=== PATIENT | female | born 1990 | race Caucasian/White ===

== ENCOUNTER 2018-07-10 14:47 | Emergency (ER) | payer OTHER ==
[~2018-07-10] VITALS: Ht 177.8 cm; Wt 117.9 kg
[2018-07-10] MEDS ORDERED: SODIUM CHLORIDE FLUSH 10ML SYR IVF ONE (15:30)
[2018-07-10] MEDS ORDERED: ONDANSETRON 2MG/ML, 2ML IVPush ONE (15:30)
[2018-07-10 15:45] LABS: BASOPHILS # (AUTO) 0.03 x10^3/uL (0-0.1); BASOPHILS % (AUTO) 0 % (0-1); EOSINOPHILS # (AUTO) 0.09 x10^3/uL (0-0.4); EOSINOPHILS % (AUTO) 1 % (1-7); LYMPHOCYTES # (AUTO) 1.31 x10^3/uL (1-3.4); LYMPHOCYTES % (AUTO) 13 % (22-44); MD NO; MEAN CORPUSCULAR HEMOGLOBIN 30.6 pg (27.0-34.8); MEAN CORPUSCULAR HGB CONC 34.6 g/dL (32.4-35.8); MEAN CORPUSCULAR VOLUME 88.6 fL (80-100); MEAN PLATELET VOLUME 7.9 fL (7.4-10.4); MONOCYTES # (AUTO) 0.98 x10^3/uL (0.2-0.8); MONOCYTES % (AUTO) 10 % (2-9); NEUTROPHILS # (AUTO) 7.33 x10^3/uL (1.8-6.8); NEUTROPHILS % (AUTO) 75 % (42-75); PLATELET COUNT 321 x10^3/uL (130-400); RED CELL DISTRIBUTION WIDTH 13.1 % (9.6-15.2)
[2018-07-10] MEDS ORDERED: ONDANSETRON 2MG/ML, 2ML ONE (15:50)
[2018-07-10 15:57] LABS: ALANINE AMINOTRANSFERASE 47 U/L (12-78); ALBUMIN 2.9 g/dL (3.4-5.0); ANION GAP 7 mmol/L (5-15); CALCIUM 8.6 mg/dL (8.5-10.1); CHLORIDE 107 mmol/L (98-107); CREATININE 0.64 mg/dL (0.55-1.02)
[2018-07-10 15:59] LABS: ALKALINE PHOSPHATASE 111 U/L (45-117); BILIRUBIN,TOTAL 0.2 mg/dL (0.2-1.0)
[2018-07-10 16:10] LABS: MICROSCOPIC INDICATED
[2018-07-10 16:35] LABS: CULTURE INDICATED? NO
[2018-07-10 17:48] VITALS: BP 111/55
== END 2018-07-10 18:46 | disposition home or self-care (01) ==
LOC: ED 17:14
DX: O9A.212 Injury, poisoning and certain other consequences of external causes complicating pregnancy, second trimester (principal); S39.012A Strain of muscle, fascia and tendon of lower back, initial encounter; O98.512 Other viral diseases complicating pregnancy, second trimester; B34.9 Viral infection, unspecified; Z3A.19 19 weeks gestation of pregnancy; X58.XXXA Exposure to other specified factors, initial encounter; Y93.89 Activity, other specified; Y92.89 Other specified places as the place of occurrence of the external cause; Y99.8 Other external cause status
CPT/HCPCS: 36415; 80053; 81001; 83605; 84145; 85025; 96374; 99283; J2405

== ENCOUNTER 2018-11-27 10:35 | Inpatient (IN) | payer OTHER ==
[~2018-11-27] VITALS: Ht 172.7 cm; Wt 123.1 kg
[2018-11-27] MEDS ORDERED: OXYTOCIN 30U/ 0.9% NaCL 500ML 500 ML IV PRN (10:50)
[2018-11-27] MEDS ORDERED: OXYTOCIN 30U/ 0.9% NaCL 500ML 500 ML IV ONE (10:50)
[2018-11-27] MEDS ORDERED: D5%-LACTATED RINGERS 1,000 ML IV SCH (10:50)
[2018-11-27 11:00] VITALS: BP 121/62
[2018-11-27] MEDS ORDERED: FENTANYL PF 100 MCG/2ML IV PRN (11:00)
[2018-11-27] MEDS ORDERED: TERBUTALINE 1 MG/ML, 1ML IVPush PRN (11:00)
[2018-11-27] MEDS ORDERED: FENTANYL PF 100 MCG/2ML IVPush PRN (11:00)
[2018-11-27] MEDS ORDERED: NEWBORN KIT ONE ×2 (11:24→11:27)
[2018-11-27 11:25] LABS: BASOPHILS # (AUTO) 0.03 x10^3/uL (0-0.1); BASOPHILS % (AUTO) 0 % (0-1); EOSINOPHILS # (AUTO) 0.16 x10^3/uL (0-0.4); EOSINOPHILS % (AUTO) 2 % (1-7); LYMPHOCYTES # (AUTO) 1.96 x10^3/uL (1-3.4); LYMPHOCYTES % (AUTO) 18 % (22-44); MD NO; MEAN CORPUSCULAR HEMOGLOBIN 29.9 pg (27.0-34.8); MEAN CORPUSCULAR HGB CONC 33.7 g/dL (32.4-35.8); MEAN CORPUSCULAR VOLUME 88.9 fL (80-100); MEAN PLATELET VOLUME 8.1 fL (7.4-10.4); MONOCYTES # (AUTO) 0.89 x10^3/uL (0.2-0.8); MONOCYTES % (AUTO) 8 % (2-9); NEUTROPHILS # (AUTO) 7.87 x10^3/uL (1.8-6.8); NEUTROPHILS % (AUTO) 72 % (42-75); PLATELET COUNT 378 x10^3/uL (130-400); RED BLOOD COUNT 4.21 x10^6/uL (3.82-5.3); RED CELL DISTRIBUTION WIDTH 13.6 % (9.6-15.2)
[2018-11-27] MEDS ORDERED: OXYTOCIN 30U/ 0.9% NaCL 500ML 500 ML ONE (11:27)
[2018-11-27] MEDS ORDERED: MISOPROSTOL 200 MCG TABLET ONE (11:27)
[2018-11-27] MEDS ORDERED: LIDOCAINE 1%, 20ML ONE (11:28)
[2018-11-27] MEDS ORDERED: PLEASE ENTER HEIGHT AND WEIGHT MC SCH (11:30)
[2018-11-27] MEDS: LACTATED RINGERS 1,000 ML IV SCH ×3 (11:35→17:52)
[2018-11-27 11:36] LABS: MICROSCOPIC INDICATED
[2018-11-27] MEDS ORDERED: PREN1TAB60 PO (11:59)
[2018-11-27] MEDS ORDERED: ACET325C5 PO (12:01)
[2018-11-27 12:19] LABS: AMPHETAMINE SCREEN, URINE Negative (Negative); BARBITURATE SCREEN, URINE Negative (Negative); BENZODIAZEPINE SCREEN, URINE Negative (Negative); CANNABINOID SCREEN, URINE Negative (Negative); COCAINE SCREEN, URINE Negative (Negative); METHADONE SCREEN, URINE Negative (Negative); OPIATE SCREEN, URINE Negative (Negative)
[2018-11-27] MEDS ORDERED: FENTANYL/BUPIV./NS/PF 250 ML EPIDCONT SCH ×2 (16:32→17:56)
[2018-11-27] MEDS ORDERED: FENTANYL PF 500 MCG, BUPIVACAINE/PF 0.5%, 30ML 62.5 ML in SODIUM CHLORIDE 0.9% 177.5 ML EPIDCONT SCH (17:00)
[2018-11-27] MEDS ORDERED: BUPIVACAINE 0.25% ONE (17:31)
[2018-11-27] MEDS ORDERED: LACTATED RINGERS 1,000 ML IV SCH (17:56)
[2018-11-27] MEDS ORDERED: EPHEDRINE 50 MG/ML, 1ML IVPush PRN (18:00)
[2018-11-27] MEDS ORDERED: LACTATED RINGERS 1,000 ML IVBOLUS PRN (18:00)
[2018-11-27] MEDS ORDERED: ONDANSETRON ODT 4 MG ONE (18:46)
[2018-11-27] MEDS: ONDANSETRON 2MG/ML, 2ML IVPush PRN (18:50)
[2018-11-27] MEDS ORDERED: CALCIUM CARBONATE 500 MG TAB.CHEW ONE (21:13)
[2018-11-27] MEDS ORDERED: ONDANSETRON 2MG/ML, 2ML IVPush PRN (21:30)
[2018-11-27] MEDS ORDERED: CALCIUM CARBONATE 500 MG TAB.CHEW PO PRN ×2 (21:30)
[2018-11-27] MEDS ORDERED: METOCLOPRAMIDE 5 MG/ML, 2ML IVPush PRN (21:30)
[2018-11-27] MEDS ORDERED: SODIUM CITRATE/CITRIC ACID 15 ML UDC PO PRN (21:30)
[2018-11-27] MEDS ORDERED: ALUMINUM/MAG/SIMETHICONE 30 ML UDC PO PRN (21:30)
[2018-11-27] MEDS ORDERED: ACETAMINOPHEN 325 MG TABLET ONE (21:58)
[2018-11-27] MEDS ORDERED: ACETAMINOPHEN 325 MG TABLET PO PRN (22:00)
[2018-11-28] MEDS ORDERED: BUPIVACAINE 0.25% ONE (02:04)
[2018-11-28] MEDS ORDERED: ONDANSETRON 2MG/ML, 2ML ONE (04:39)
[2018-11-28] MEDS ORDERED: ONDANSETRON ODT 4 MG ONE (04:39)
[2018-11-28] MEDS: ONDANSETRON 2MG/ML, 2ML IVPush PRN (04:41)
[2018-11-28] MEDS ORDERED: OXYcodone IR 5MG TABLET PO PRN (05:30)
[2018-11-28] MEDS ORDERED: MISOPROSTOL 200 MCG TABLET PR PRN (05:30)
[2018-11-28] MEDS ORDERED: ACETAMINOPHEN 325 MG TABLET PO PRN (05:30)
[2018-11-28] MEDS ORDERED: ONDANSETRON 2MG/ML, 2ML IV PRN (05:30)
[2018-11-28] MEDS ORDERED: OXYTOCIN 30U/ 0.9% NaCL 500ML 500 ML ONE (06:05)
[2018-11-28] MEDS: OXYTOCIN 30U/ 0.9% NaCL 500ML 500 ML IV SCH ×2 (06:07→15:05)
[2018-11-28] MEDS ORDERED: DIPHENHYDRAMINE 25 MG CAPSULE ONE (06:16)
[2018-11-28] MEDS ORDERED: DIPHENHYDRAMINE 25 MG CAPSULE PO ONE (06:30)
[2018-11-28 07:25] VITALS: BP 125/84
[2018-11-28] MEDS: PRENATAL VIT/IRON/FA 1 EACH TABLET PO SCH (09:00)
[2018-11-28 12:00] VITALS: BP 117/71
[2018-11-28 12:59] LABS: BASOPHILS # (AUTO) 0.06 x10^3/uL (0-0.1); BASOPHILS % (AUTO) 0 % (0-1); EOSINOPHILS # (AUTO) 0.11 x10^3/uL (0-0.4); EOSINOPHILS % (AUTO) 1 % (1-7); LYMPHOCYTES # (AUTO) 1.94 x10^3/uL (1-3.4); LYMPHOCYTES % (AUTO) 12 % (22-44); MD NO; MEAN CORPUSCULAR HEMOGLOBIN 30.3 pg (27.0-34.8); MEAN CORPUSCULAR VOLUME 88.9 fL (80-100); MONOCYTES # (AUTO) 1.29 x10^3/uL (0.2-0.8); MONOCYTES % (AUTO) 8 % (2-9); NEUTROPHILS # (AUTO) 12.36 x10^3/uL (1.8-6.8); NEUTROPHILS % (AUTO) 78 % (42-75); PLATELET COUNT 313 x10^3/uL (130-400); RED BLOOD COUNT 3.57 x10^6/uL (3.82-5.3); RED CELL DISTRIBUTION WIDTH 13.5 % (9.6-15.2)
[2018-11-28 15:45] VITALS: BP 137/81
[2018-11-28] MEDS: DOCUSATE 100 MG CAPSULE PO PRN (19:59)
[2018-11-28] MEDS: IBUPROFEN 600 MG TABLET PO PRN (19:59)
[2018-11-28 20:00] VITALS: BP 123/78
[2018-11-28] MEDS: OXYcodone/APAP 5/325MG TABLET PO PRN (22:25)
[2018-11-29] VITALS: BP 112/75
[2018-11-29] MEDS: OXYTOCIN 30U/ 0.9% NaCL 500ML 500 ML IV SCH (01:05)
[2018-11-29] MEDS: OXYcodone/APAP 5/325MG TABLET PO PRN ×2 (06:33→15:41)
[2018-11-29] MEDS: IBUPROFEN 600 MG TABLET PO PRN ×2 (06:33→15:41)
[2018-11-29 08:00] VITALS: BP 113/74
[2018-11-29] MEDS: PRENATAL VIT/IRON/FA 1 EACH TABLET PO SCH (08:29)
[2018-11-29] MEDS: DOCUSATE 100 MG CAPSULE PO PRN (08:29)
[2018-11-29] MEDS ORDERED: MAGNESIUM HYDROXIDE 8%, 30ML UDC PO PRN (08:30)
[2018-11-29] MEDS ORDERED: DIPH,PERTUSS(ACELL),TET VAC/PF NC IM-VACC ONE ×2 (08:50→09:00)
[2018-11-29] MEDS ORDERED: OXYC-302 PO (13:43)
[2018-11-29] MEDS ORDERED: DOCU-131 PO (13:43)
[2018-11-29] MEDS ORDERED: IBUP-1222 PO (13:43)
== END 2018-11-29 16:20 | disposition home or self-care (01) | DRG 807 ==
LOC: LDIP 10:35 → 2NW 11-28 07:23
PROVIDERS: ADMIT Obstetrics & Gynecology; ATTEND Obstetrics & Gynecology
PROC: 10E0XZZ Delivery of Products of Conception, External Approach (ICD-10-PCS; principal; 2018-11-28)
PROC: 0UQGXZZ Repair Vagina, External Approach (ICD-10-PCS; 2018-11-28)
PROC: 3E0R3BZ Introduction of Anesthetic Agent into Spinal Canal, Percutaneous Approach (ICD-10-PCS; 2018-11-28)
PROC: 00HU33Z Insertion of Infusion Device into Spinal Canal, Percutaneous Approach (ICD-10-PCS; 2018-11-28)
PROC: 10907ZC Drainage of Amniotic Fluid, Therapeutic from Products of Conception, Via Natural or Artificial Opening (ICD-10-PCS; 2018-11-28)
PROC: 3E033VJ Introduction of Other Hormone into Peripheral Vein, Percutaneous Approach (ICD-10-PCS; 2018-11-28)
DX: O69.81X0 Labor and delivery complicated by cord around neck, without compression, not applicable or unspecified (principal); Z37.0 Single live birth; Z3A.39 39 weeks gestation of pregnancy; O75.89 Other specified complications of labor and delivery; S30.814A Abrasion of vagina and vulva, initial encounter
CPT/HCPCS: 36415; 80307; 81001; 82962; 85025; 86850; 86900; 90715; G0378; J2405; J3010; J3490; J2590; J7050; J7120; Q0163

== ENCOUNTER 2018-12-16 17:53 | Emergency (ER) | payer OTHER ==
[~2018-12-16] VITALS: Ht 177.8 cm; Wt 112.5 kg
[~2018-12-16 17:53] MED LIST: ACET325C5 PO; DOCU-131 PO; IBUP-1222 PO; OXYC-302 PO; PREN1TAB60 PO
[2018-12-16 19:09] LABS: BASOPHILS # (AUTO) 0.07 x10^3/uL (0-0.1); BASOPHILS % (AUTO) 1 % (0-1); EOSINOPHILS # (AUTO) 0.47 x10^3/uL (0-0.4); EOSINOPHILS % (AUTO) 5 % (1-7); LYMPHOCYTES # (AUTO) 2.52 x10^3/uL (1-3.4); LYMPHOCYTES % (AUTO) 24 % (22-44); MD NO; MEAN CORPUSCULAR HEMOGLOBIN 29.5 pg (27.0-34.8); MEAN CORPUSCULAR HGB CONC 33.3 g/dL (32.4-35.8); MEAN CORPUSCULAR VOLUME 88.6 fL (80-100); MEAN PLATELET VOLUME 8.6 fL (7.4-10.4); MONOCYTES # (AUTO) 0.68 x10^3/uL (0.2-0.8); MONOCYTES % (AUTO) 7 % (2-9); NEUTROPHILS # (AUTO) 6.59 x10^3/uL (1.8-6.8); NEUTROPHILS % (AUTO) 64 % (42-75); PLATELET COUNT 477 x10^3/uL (130-400); RED BLOOD COUNT 4.78 x10^6/uL (3.82-5.3); RED CELL DISTRIBUTION WIDTH 13.5 % (9.6-15.2)
[2018-12-16 19:13] LABS: MICROSCOPIC AUTO
[2018-12-16 19:16] LABS: ALBUMIN 3.6 g/dL (3.4-5.0); ANION GAP 7 mmol/L (5-15); CALCIUM 8.8 mg/dL (8.5-10.1); CHLORIDE 109 mmol/L (98-107)
[2018-12-16 19:17] LABS: CULTURE INDICATED? YES
[2018-12-16 19:20] LABS: ALANINE AMINOTRANSFERASE 54 U/L (12-78); ALKALINE PHOSPHATASE 140 U/L (45-117); BILIRUBIN,TOTAL 0.5 mg/dL (0.2-1.0); CREATININE 0.94 mg/dL (0.55-1.02); TOTAL PROTEIN 7.8 g/dL (6.4-8.2)
[2018-12-16] MEDS ORDERED: KETOROLAC 30 MG/1 ML IVPush ONE (19:30)
[2018-12-16] MEDS ORDERED: KETOROLAC 30 MG/1 ML ONE (19:48)
--- NOTE | 2018-12-16 19:53 | NUR ---
PT HERE FOR ABD PAIN AND RIGHT FLANK PAIN. PIV PLACED AND PT GIVEN MEDICATION. PT HAS NO ISSUES WITH IV CONTRAST. PT TO CT.
[2018-12-16] MEDS ORDERED: OMNIPAQUE 350 MG/ML, 100ML BOTTLE ONE (20:15)
[2018-12-16 21:11] VITALS: BP 112/72
--- NOTE | 2018-12-16 21:32 | NUR ---
Patient given discharge instructions and they have confirmed that they understand the instructions. Patient ambulatory with steady gait.
== END 2018-12-16 21:34 | disposition home or self-care (01) ==
LOC: ED 20:27
DX: N30.00 Acute cystitis without hematuria (principal); Z87.891 Personal history of nicotine dependence
CPT/HCPCS: 36415; 74177; 80053; 81001; 85025; 87086; 96374; 99284; J1885; Q9967

== ENCOUNTER 2020-06-10 13:46 | Emergency (ER) | payer MEDICAID ==
[~2020-06-10] VITALS: Ht 177.8 cm; Wt 110.0 kg
[~2020-06-10 13:46] MED LIST changes: -ACET325C5 PO; +ACET325C6 PO
[2020-06-10 14:09] VITALS: BP 171/82
== END 2020-06-10 16:09 | disposition left against medical advice (07) ==
LOC: ED 14:30
DX: B34.9 Viral infection, unspecified (principal); R05 Cough; R50.9 Fever, unspecified; R09.81 Nasal congestion; F17.200 Nicotine dependence, unspecified, uncomplicated; Z90.49 Acquired absence of other specified parts of digestive tract; Z86.718 Personal history of other venous thrombosis and embolism
CPT/HCPCS: 36415; 87635; 99281; 99283

== ENCOUNTER → 2021-03-27 | Outpatient (CLI) | payer MEDICAID ==
[~2021-03-27] MED LIST changes: +Nebulizer; +ONDA4TAB7 PO; -OXYC-302 PO; +OXYC1TAB14 PO; +TRAZ-96 PO; +inhaler INH
== END | disposition home or self-care (01) ==
LOC: STAR 09:09
PROVIDERS: ATTEND Surgery
DX: Z20.822 Contact with and (suspected) exposure to COVID-19 (principal)
CPT/HCPCS: U0003; U0005

== ENCOUNTER 2021-04-02 11:31 | Day surgery (SDC) | payer MEDICAID ==
[~2021-04-02] VITALS: Ht 177.8 cm; Wt 117.4 kg
[2021-04-02] MEDS ORDERED: FENTANYL PF 100 MCG/2ML ONE (11:43)
[2021-04-02] MEDS ORDERED: MIDAZOLAM 1 MG/ML, 2ML ONE (11:43)
[2021-04-02 11:52] VITALS: BP 138/86
[2021-04-02] MEDS ORDERED: LACTATED RINGERS 1,000 ML IV SCH (12:00)
[2021-04-02] MEDS ORDERED: OXYcodone 5 MG/5 ML ORAL.SOL UDC PO PRN (12:00)
[2021-04-02] MEDS ORDERED: CHLORHEXIDINE 15 ML UDC PO ONE (12:00)
[2021-04-02] MEDS ORDERED: MEPERIDINE/PF 25MG/0.5ML IVPush PRN (12:00)
[2021-04-02] MEDS ORDERED: PROMETHAZINE 25 MG/ML, 1ML IVPush PRN (12:00)
[2021-04-02] MEDS ORDERED: FENTANYL PF 100 MCG/2ML IV PRN (12:00)
[2021-04-02] MEDS ORDERED: ACETAMINOPHEN 325 MG TABLET PO PRN (12:00)
[2021-04-02] MEDS ORDERED: HYDROmorphone 1 MG/ML, 1ML INJ IVPush PRN (12:00)
[2021-04-02] MEDS ORDERED: LABETALOL 5MG/ML, 20ML IV PRN (12:00)
[2021-04-02] MEDS ORDERED: MIDAZOLAM 1 MG/ML, 2ML IV PRN (12:00)
[2021-04-02] MEDS ORDERED: ALBUTEROL SULFATE 2.5 MG/3 ML NPPB PRN (12:00)
[2021-04-02] MEDS ORDERED: CHLORHEXIDINE 15 ML UDC ONE (12:01)
[2021-04-02 12:26] LABS: HCG UR SG 1.022 (1.003-1.030)
[2021-04-02] MEDS ORDERED: BUPIVACAINE/PF 0.25% ONE (13:22)
[2021-04-02] MEDS ORDERED: KETOROLAC 30 MG/1 ML ONE (13:55)
[2021-04-02] MEDS ORDERED: LIDOCAINE-MPF 2% ,5ML ONE (13:55)
[2021-04-02] MEDS ORDERED: DEXAMETHASONE 4 MG/ML, 1ML ONE (13:58)
[2021-04-02] MEDS ORDERED: ONDANSETRON 2MG/ML, 2ML ONE (13:58)
[2021-04-02] MEDS ORDERED: PROPOFOL 10 MG/ML, 20ML ONE (13:58)
[2021-04-02] MEDS ORDERED: PROMETHAZINE 25 MG/ML, 1ML ONE (14:40)
== END 2021-04-02 16:48 | disposition home or self-care (01) ==
LOC: OUT 11:31
PROVIDERS: ATTEND Surgery
DX: N64.52 Nipple discharge (principal); D24.2 Benign neoplasm of left breast; N60.32 Fibrosclerosis of left breast; J45.909 Unspecified asthma, uncomplicated; E66.9 Obesity, unspecified; Z91.013 Allergy to seafood; Z80.3 Family history of malignant neoplasm of breast
CPT/HCPCS: 19120; 19125; 76098; 81025; 88305; 88307; J1100; J1885; J2250; J2405; J2550; J2704; J3010; J7120